=== PATIENT | female | born 1980 | race Caucasian/White ===

== ENCOUNTER 2017-07-15 07:15 | Inpatient (IN) | payer OTHER ==
[~2017-07-15] VITALS: Ht 167.6 cm; Wt 99.8 kg
[~2017-07-15 07:15] MED LIST: FOLIC ACID1 MG PO; PRENA1 PEARL S1 EACH PO
== END 2017-07-17 13:27 | disposition home or self-care (01) | DRG 766 ==
LOC: OB/GYN 07:15 → O/R 08:23 → OB/GYN 13:16
PROVIDERS: Obstetrics & Gynecology
PROC: 0UL70ZZ Occlusion of Bilateral Fallopian Tubes, Open Approach (ICD-10-PCS; 2017-07-15)
PROC: 4A033R1 Measurement of Arterial Saturation, Peripheral, Percutaneous Approach (ICD-10-PCS; 2017-07-15)
PROC: 4A1HXCZ Monitoring of Products of Conception, Cardiac Rate, External Approach (ICD-10-PCS; 2017-07-15)
PROC: 10D00Z1 Extraction of Products of Conception, Low, Open Approach (ICD-10-PCS; principal; 2017-07-15 07:15)
DX: O99.824 Streptococcus B carrier state complicating childbirth (principal); Z3A.38 38 weeks gestation of pregnancy; Z37.0 Single live birth; Z30.2 Encounter for sterilization; O09.523 Supervision of elderly multigravida, third trimester